=== PATIENT | female | born 1970 | race Caucasian/White ===

== ENCOUNTER 2016-11-29 07:07 | Observation (INO) | payer OTHER ==
[2016-11-29] MEDS ORDERED: NS 1,000 ML IV ONE (07:10)
[2016-11-29] MEDS ORDERED: MIDAZOLAM 2 MG/2 ML VIAL IVP ONE (07:10)
--- NOTE | 2016-11-29 07:30 | CPEKG ---
Heart Rate: 67 RR Interval: 896 P-R Interval: 144 QRSD Interval: 94 QT Interval: 412 QTC Interval: 435 P [place]: 76 QRS [place]: 61 T Wave [place]: 60 EKG Severity - NORMAL ECG - EKG Impression: SINUS RHYTHM EKG Impression: Agree with above Electronically Signed By: Sae Ulrich 29-Nov-2016 18:33:38
[2016-11-29] MEDS ORDERED: HEPARIN 10,000 UNIT/10 ML MDV ONE ×2 (07:33→10:46)
[2016-11-29] MEDS ORDERED: LIDOCAINE 1% 30 ML SDV ONE (07:33)
[2016-11-29] MEDS ORDERED: ISOPROTERENOL HCL 0.2 MG/ML 5ML AMP ONE (07:33)
[2016-11-29] MEDS ORDERED: BUPIVACAINE 0.5% 30 ML SDV ONE (07:34)
[2016-11-29 07:53] LABS: % IMMATURE GRANULYOCYTES 0.7 % (0.0-1.1); ABSOLUTE IMMATURE GRANULOCYTES 0.04 10^3/uL (0.00-0.10); ADD DIFF? NO; ADD MORPH? NO; ADD SCAN? NO; ATYPICAL LYMPHOCYTE FLAG 0 (0-99); FRAGMENT RBC FLAG 0 (0-99); HEMATOCRIT 41.2 % (38.0-47.0); HEMOGLOBIN 14.1 g/dL (12.6-16.3); LEFT SHIFT FLG 0 (0-99); LIPEMIA HEMOLYSIS FLAG 90 (0-99); MEAN CELL HEMOGLOBIN 32.3 pg (27.9-34.1); MEAN CELL HEMOGLOBIN CONCENTR. 34.2 g/dL (32.4-36.7); MEAN CELL VOLUME 94.3 fL (81.5-99.8); MEAN PLATELET VOLUME 9.3 fL (8.7-11.7); PLATELET CLUMPS FLAG 70 (0-99); PLATELET COUNT 192 10^3/uL (150-400); RED BLOOD CELL COUNT 4.37 10^6/uL (4.18-5.33); RED CELL DISTRIBUTION WIDTH 12.8 % (11.5-15.2)
[2016-11-29 07:59] LABS: INR 1.13 (0.83-1.16); PROTIME(PATIENT) 14.4 SEC (12.0-15.0)
[2016-11-29 08:00] LABS: APTT 29.2 SEC (23.0-38.0)
[2016-11-29 08:38] LABS: ANION GAP 11 mEq/L (8-16); CALCIUM 9.3 mg/dL (8.5-10.4); CARBON DIOXIDE 21 mEq/l (22-31); CHLORIDE 108 mEq/L (97-110); CREATININE 0.7 mg/dL (0.6-1.0); GLOMERULAR FILTRATION RATE > 60; GLUCOSE 93 mg/dL (70-100); POTASSIUM 4.9 mEq/L (3.5-5.2); SODIUM 140 mEq/L (134-144)
[2016-11-29] MEDS ORDERED: fentaNYL 250 MCG/5 ML INJ ONE (08:41)
[2016-11-29] MEDS ORDERED: PROPOFOL/EMULSION 500 MG/50 ML BOTTLE IV ONE ×2 (08:41)
[2016-11-29] MEDS ORDERED: MIDAZOLAM 2 MG/2 ML VIAL ONE ×2 (08:42→10:28)
[2016-11-29] MEDS ORDERED: ROCURONIUM 100 MG/10 ML VIAL ONE (08:42)
[2016-11-29] MEDS ORDERED: GLYCOPYRROLATE 0.2 MG/1 ML VIAL ONE (08:43)
[2016-11-29] MEDS ORDERED: DEXAMETHASONE 4 MG/ML VIAL ONE (09:11)
[2016-11-29] MEDS ORDERED: VASOPRESSIN 20 UNIT/ML VIAL ONE (09:11)
[2016-11-29] MEDS ORDERED: ONDANSETRON 4 MG/2 ML VIAL ONE (09:11)
[2016-11-29] MEDS ORDERED: ROCURONIUM 50 MG/5 ML VIAL ONE (10:44)
[2016-11-29] MEDS ORDERED: OXYCODONE/APAP 5/325 TAB PO PRN (12:08)
[2016-11-29] MEDS ORDERED: ONDANSETRON 4 MG/2 ML VIAL IVP PRN (12:08)
--- NOTE | 2016-11-29 12:08 | EPPROC ---
Electrophysiology Procedure Note: ELECTROPHYSIOLOGIC STUDY AND CATHETER MEDIATED ABLATION OF SLOW/FAST AV TRINY REENTRY TACHYCARDIA PROCEDURES PERFORMED: 78190-94 EP evaluation with RA/RV/LA pace/record, with arrhythmia induction 08252-97 EP evaluation with RA/RV pace record, insert/reposition catheter, with arrhythmia induction 87752 Intracardiac catheter ablation, SVT arrhythmogenic focus 16235 3D mapping Fluoroscopy INDICATION: SVT on LINQ PROCEDURE: Catheters & Anesthesia: The patient arrived in the Electrophysiology Laboratory in the fasting state. The right clavicular region, right groin, and left groin area were prepped and draped in the usual sterile manner. Anesthesiologist Dr. Mark Anthony Canchola administered general anesthesia. Appropriate non-invasive blood pressure, pulse oximetry and end-tidal CO2 monitoring was established. All catheters were placed percutaneously using the modified Seldinger technique , and advanced into position under fluoroscopic guidance. One #6 [place] hexapolar non-deflectable electrode catheter was inserted into the right atrial appendage via the left femoral vein (2mm spacing; except the proximal ring which was 25cm from the tip used for unipolar recordings). One #7 [place] deflectable octapolar electrode catheter was advanced to the His-bundle position via the left femoral vein (2mm spacing). One #7 [place] deflectable catheter with 10 pairs of electrodes was placed via the right femoral vein into the coronary sinus. CS access needed to be obtained with quadrapolar catheter first. Heparin was given to keep ACT > 200 s. Programmed stimulation was performed from the right atrium, right ventricle and coronary sinus (left atrium). Parahisian pacing demonstrated constant H-A interval with changing V-A intervals and stimulus-A intervals during capture and loss of capture of proximal RBB proving retrograde conduction over AV node. Dual AV triny pathway physiology was seen. 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 Sinus tachycardia 380 ms was seen with isoproterenol. Given that patient has had sustained SVT, we decided to ablate the slow AV triny pathway. Mapping of the right atrium and coronary sinus during AVNRT identified earliest atrial activation above the tendon of Kee[place] at a level slightly posterior to the level of the His bundle, consistent with retrograde conduction over the fast AV triny pathway. A #8 [place] deflectable quadrapolar electrode catheter (2mm-5mm-2mm spacing) with 4 mm tip electrode and sensor for the 3D mapping Carto system was advanced to the right atrium. 3 D mapping of the inter-atrial septum and coronary sinus was performed and location of the AV node was marked. A SL2 sheath was used. RF applications were delivered to the region between the tricuspid annulus and the coronary sinus ostium, at the level of the upper edge of the coronary sinus ostium. Radiofrequency applications were also delivered along the roof of the proximal coronary sinus. Junctional rhythm occurred during all of the RF applications. Antegrade slow pathway conduction was not seen post ablation. The catheters were removed. The long sheath was changed to a short 9 Fr sheath. The patient was transferred to the cardiovascular holding area in stable condition. Vascular access sheaths will be removed in the holding area. There were no apparent complications. Results: Spontaneous Intervals: Pre ablation SCL 910 ms AH 60 ms HV 40 ms Post ablation SCL 780 ms AH 60 ms HV 40 ms Antegrade AV triny function (decremental pacing) Pre ablation FPERP 460 ms SPERP 450 ms WBB CL 440 ms Post ablation FPERP 360 ms WBB CL 350 ms Retrograde AV triny function (decremental pacing) Pre ablation FPERP 290 ms WBB CL 280 ms Arrhythmias: Non-Sustained slow/fast AVNRT, 3 bts CONCLUSIONS 1.Prior documented sustained SVT 2.Successful ablation of the slow AV triny pathway with elimination of 1:1 antegrade conduction over the slow AV triny pathway and all retrograde conduction over the slow AV triny pathway. 3.No complications. Patient Problems: Problems Problem Status Onset Supraventricular tachycardia Acute
[2016-11-29] MEDS ORDERED: LORazepam 2 MG/ML INJ ONE (12:13)
[2016-11-29] MEDS ORDERED: LORazepam 2 MG/ML INJ IVP PRN (12:13)
--- NOTE | 2016-11-29 12:24 | CPEKG ---
Heart Rate: 77 RR Interval: 779 P-R Interval: 144 QRSD Interval: 82 QT Interval: 392 QTC Interval: 444 P [place]: 77 QRS [place]: 54 T Wave [place]: 56 EKG Severity - OTHERWISE NORMAL ECG - EKG Impression: SINUS RHYTHM EKG Impression: Possible left atrial abnormality EKG Impression: No significant change from November 29, 2016, 7:28 Electronically Signed By: Sae Ulrich 29-Nov-2016 18:32:44
[2016-11-29 14:07] LABS: ANION GAP 7 mEq/L (8-16); CALCIUM 8.6 mg/dL (8.5-10.4); CARBON DIOXIDE 22 mEq/l (22-31); CHLORIDE 110 mEq/L (97-110); CREATININE 0.7 mg/dL (0.6-1.0); GLOMERULAR FILTRATION RATE > 60; GLUCOSE 100 mg/dL (70-100); MAGNESIUM 1.8 mg/dL (1.6-2.3); POTASSIUM 4.6 mEq/L (3.5-5.2); SODIUM 139 mEq/L (134-144)
[2016-11-29] MEDS: GABAPENTIN 300 MG CAP PO SCH ×2 (15:14→21:05)
[2016-11-29] MEDS ORDERED: NON-FORMULARY NEW DRUG (Gabapentin [Gabapentin] 600 MG) PO SCH (16:00)
[2016-11-29] MEDS: ENOXAPARIN 60 MG/0.6 ML SYR SC SCH (21:05)
[2016-11-30 05:23] LABS: % IMMATURE GRANULYOCYTES 0.4 % (0.0-1.1); ABSOLUTE IMMATURE GRANULOCYTES 0.04 10^3/uL (0.00-0.10); ADD DIFF? NO; ADD MORPH? NO; ADD SCAN? NO; ATYPICAL LYMPHOCYTE FLAG 0 (0-99); FRAGMENT RBC FLAG 0 (0-99); HEMATOCRIT 38.7 % (38.0-47.0); HEMOGLOBIN 13.1 g/dL (12.6-16.3); LEFT SHIFT FLG 0 (0-99); LIPEMIA HEMOLYSIS FLAG 90 (0-99); MEAN CELL HEMOGLOBIN 31.6 pg (27.9-34.1); MEAN CELL HEMOGLOBIN CONCENTR. 33.9 g/dL (32.4-36.7); MEAN CELL VOLUME 93.3 fL (81.5-99.8); MEAN PLATELET VOLUME 9.6 fL (8.7-11.7); PLATELET CLUMPS FLAG 0 (0-99); PLATELET COUNT 208 10^3/uL (150-400); RED BLOOD CELL COUNT 4.15 10^6/uL (4.18-5.33); RED CELL DISTRIBUTION WIDTH 12.8 % (11.5-15.2)
[2016-11-30 05:29] LABS: INR 1.21 (0.83-1.16); PROTIME(PATIENT) 15.3 SEC (12.0-15.0)
[2016-11-30 05:30] LABS: ANION GAP 10 mEq/L (8-16); CARBON DIOXIDE 22 mEq/l (22-31); CHLORIDE 106 mEq/L (97-110); CREATININE 0.7 mg/dL (0.6-1.0); GLOMERULAR FILTRATION RATE > 60; GLUCOSE 75 mg/dL (70-100); SODIUM 138 mEq/L (134-144)
[2016-11-30 05:39] LABS: CREATINE KINASE-MB FRACTION 1.27 ng/mL (0-3.19); TROPONIN I 0.211 ng/mL (0-0.034)
[2016-11-30] MEDS: ENOXAPARIN 60 MG/0.6 ML SYR SC SCH (08:21)
[2016-11-30] MEDS: ASPIRIN EC 81 MG TAB PO SCH (08:22)
[2016-11-30] MEDS: GABAPENTIN 300 MG CAP PO SCH ×3 (08:22→20:28)
--- NOTE | 2016-11-30 08:35 | CPEKG ---
Heart Rate: 84 RR Interval: 714 P-R Interval: 132 QRSD Interval: 86 QT Interval: 376 QTC Interval: 445 P [place]: 77 QRS [place]: 58 T Wave [place]: 52 EKG Severity - NORMAL ECG - EKG Impression: SINUS RHYTHM EKG Impression: No significant change from November 29, 2016 Electronically Signed By: Sae Ulrich 30-Nov-2016 12:27:21
[2016-11-30] MEDS ORDERED: IOPAMIDOL (ISOVUE 370) 100 ML BTL IV ONE (10:39)
--- NOTE | 2016-11-30 10:41 | ECHO ---
[id number] + + [address] : : [place] [address] : : [phone] + Adult Echocardiographic Report + ---+ :Name: LETICIA MCMULLEN LStudy Date: 11/30/2016 09:49 AM : : Hospital Admission Number: [id number] Location: 222: :: 1970 Gender: Female Height: 65 in : :Age: 46 yrs Race: WH Weight: 127 lb : :Reason For Study: Eval LV Fx : : BSA: 1.6 meters2 : :History: Post Ablation : + ---+ MMode/2D Measurements \T\ Calculations IVSd: 0.77 cm LVIDd: 4.3 cm FS: 35.5 % Ao root diam: 2.5 cm LVPWd: 0.94 cm LVIDs: 2.8 cm EDV(Teich): 83.0 ml ACS: 1.7 cm ESV(Teich): 28.8 ml LA dimension: 2.3 cm EF(Teich): 65.3 % Normal Measurement Values: + + :LVIDd (3.5-5.7cm) IVSd (0.6-1.1cm) LVPWd (0.6-1.1cm) Aortic Root (2.0-3.7cm)Left Atrium (1.5-4.0cm): :LV Vol(d) (76-115ml) LV Vol(s) (29-48ml) Ejec Fraction (50-65%)PV Elvin (0.6- 1.2m/s) TV Elvin (0.4-1.0m/s) : :MV E Elvin (0.8-1.0m/s)MV A Elvin (0.3-1.0m/s)LVOT Elvin (0.7-1.2m/s) Asc Ao Elvin ( 0.9-1.8m/s) : + + Doppler Measurements \T\ Calculations MV E max elvin: Ao V2 max: LV V1 max: PA V2 max: 83.4 cm/sec 139.8 cm/sec 81.9 cm/sec 81.4 cm/sec MV A max elvin: Ao max P.8 mmHg LV V1 max PG: PA max P.8 cm/sec 2.7 mmHg 2.7 mmHg MV E/A: 1.5 Left Ventricle The left ventricle is normal in size. There is normal left ventricular wall thickness. The left ventricular ejection fraction is normal. Ejection Fraction = 66%. The left ventricular wall motion is normal. Atria The left atrial size is normal. Right atrial size is normal. Mitral Valve The mitral valve is normal in structure and function. There is no evidence of mitral valve prolapse. There is no mitral valve stenosis. There is trace mitral regurgitation. Tricuspid Valve Normal tricuspid valve. No tricuspid regurgitation. Aortic Valve The aortic valve is normal in structure and function. The aortic valve is trileaflet. There is no aortic stenosis. There is no aortic insufficiency. Pulmonic Valve The pulmonic valve is normal in structure and function. There is no pulmonic valvular regurgitation. Great Vessels The aortic root is normal size. Pericardium/Pleural There is no pericardial effusion. Conclusion A complete two-dimensional transthoracic echocardiogram was performed (2D, M-mode, Doppler and color flow Doppler). The left ventricular ejection fraction is normal. Ejection Fraction = 66%. The left ventricular wall motion is normal. The left atrial size is normal. The mitral valve is normal in structure and function. There is trace mitral regurgitation. The aortic valve is normal in structure and function. The aortic valve is trileaflet. There is no pericardial effusion. Final Reading Physician: Miley Santos signed on 11/30/2016 10:40 AM Ordering Physician: Hernan Davison Performed By: Lisandro Harley, CHARLIECS
[2016-11-30] MEDS: ACETAMINOPHEN 325 MG TAB PO PRN ×2 (10:47→20:35)
[2016-11-30] MEDS ORDERED: IBUPROFEN 600 MG TAB PO ONE (11:40)
[2016-11-30] MEDS ORDERED: KETOROLAC 15 MG/1 ML SDV IVP ONE (15:46)
--- NOTE | 2016-11-30 16:22 | PDCARPN ---
Cardiology Progress Note Chief Complaint: Patient reports chest pressure with deep inspiration. Also reporting continues left hip pain. Assessment/Plan: Assessment: 46-year-old female patient with significant history of factor 5 Leiden mutation and SVT. Noted October 15 off continues monitoring of an episode SVT with heart rates up to [address] Evans for EP study. Performed yesterday, which she was successfully able to eliminate a slow AV maury pathway with retrograde conduction (AVNRT). No apparent complications. This morning, patient reporting chest pressure with deep inspirations, reporting has been going on for greater than 1 week. And left hip pain. Groin site without signs of bleeding, ecchymosis, hematoma, or signs of infection. Electrocardiogram done this a.m. shows sinus rhythm with no significant ST or T-wave abnormalities suggesting of ischemia. Unchanged from preprocedural EKG. Patient noted to have normal exercise treadmill test done at [facility] 03/11/2016. Echocardiogram done this morning showed normal LV function with EF 66 %, no wall motion abnormalities, trace MR, no pericardial effusion. Patient with mildly elevated troponin this morning at 0.211, which is expected after ablation. No CK-MB elevation. Patient sent for CTA of chest, negative for PE, trace right pleural effusion. Noted 4 mm nodule, which radiology reports no further follow-up is recommended due the patient being a nonsmoker. Patient given ibuprofen, reporting some relief in symptoms. Toradol this afternoon. Continuous cardiac monitoring shows sinus rhythm, no SVT, VT, or malignant arrhythmias could. No significant pauses. Plan: 1. SVT: Status post ablation, no arrhythmias noted on continuous cardiac monitoring. 2. CP: Improved with ibuprofen, patient given torsemide this afternoon. Electrocardiogram showing normal LV systolic function, normal EF, no wall motion abnormalities. No pericardial effusion. No acute ST or T-wave abnormalities. Mild troponin bump as expected post ablation, no CK elevation. Negative CTA for PE. Will plan on monitoring overnight, repeat EKG in a.m.. Repeat troponin level to assure on downward decline. Will also set order C reactive protein and sed rate in am. 3. Factor 5 Leiden deficiency: Patient had Lovenox postoperatively, transition to Eliquis, per Dr. Evans once her on a for a minimum of 1 month post ablation 4. 4 mm nodule on CTA chest: Patient with previous history of smoking, quit 25 years ago, will refer to pulmonology as an outpatient for follow-up. 5. Left hip pain: No signs of bleeding (H&H stable), improvement with ibuprofen. Potential muscular skeletal due to duration laying on EP table. Due to the patient needing to be further monitor, will plan for her for least 1 more midnight stay. 11/30/16 16:19 Subjective: Patient denies of any shortness of breath, orthopnea, PND, edema, palpitations, near-syncope, or syncopal events. Reviewed/Discussed With: family (), other (Dr Evans) Objective: Vital Signs (8 Hrs) Temp Pulse Resp BP Pulse Ox 11/30/16 11:52 36.6 C 66 17 101/69 99 Intake/Output (24 Hrs) 11/29/16 11/30/16 12/01/16 05:59 05:59 05:59 Intake Total 3100 Output Total 850 Balance 2250 Intake: Oral (ml) 1250 IV Intake (ml) 1850 Output: Urine (ml) 850 Toilet 850 Other: Weight 58 kg Intake Quantity Yes Sufficient Number of Voids Toilet 1 Result Diagrams: 11/30/16 03:37 11/30/16 03:37 Cardiac Labs: Cardiac Lab Results (72 Hrs) 11/30/16 03:37 CK-MB (CK-2) Fraction 1.27 Troponin I 0.211 H - Physical Exam Constitutional: WDWN, healthy appearing, no apparent distress Ears, Nose, Mouth, Throat: moist mucous membranes Cardiovascular: regular rate and rhythm, no murmurs, no rubs, no gallops, pulses symmetric bilat, No systolic murmur, No jugular vein distention, No carotid bruit Peripheral Pulses: 1+: dorsalis-pedis (R), dorsalis-pedis (L), 2+: carotid (R), carotid (L) Respiratory: clear to auscultate bilat, no crackles, no wheezes, No reduced air movement Gastrointestinal: normoactive bowel sounds Skin: no rashes, warm, no edema, other (Bilateral groin sites, catheter insertion sites, with no redness, swelling, or drainage. No ecchymosis, hematoma, or bleeding. No auscultated bruit over either site.) Neurologic: AAOx3 Psychiatric: cooperative, interactive, following commands ICD10 Worksheet Patient Problems: Problems Problem Status Onset Supraventricular tachycardia Acute
[2016-11-30 19:50] VITALS: RESP 16
[2016-11-30] MEDS ORDERED: CALCIUM CARBONATE 500 MG CHEWABLE TAB PO PRN (20:07)
[2016-11-30] MEDS ORDERED: PANTOPRAZOLE SODIUM 40 MG TAB PO ONE (20:07)
[2016-11-30] MEDS: APIXABAN 5 MG TAB PO SCH (20:28)
[2016-11-30] MEDS ORDERED: LORazepam 0.5 MG TAB PO ONE (20:30)
[2016-11-30] MEDS ORDERED: LORazepam 0.5 MG TAB PO PRN (23:00)
[2016-12-01 04:35] LABS: HEMATOCRIT 36.8 % (38.0-47.0); HEMOGLOBIN 12.5 g/dL (12.6-16.3); MEAN CELL HEMOGLOBIN 32.2 pg (27.9-34.1); MEAN CELL VOLUME 94.8 fL (81.5-99.8); RED BLOOD CELL COUNT 3.88 10^6/uL (4.18-5.33)
[2016-12-01 04:51] LABS: ANION GAP 8 mEq/L (8-16); C-REACTIVE PROTEIN < 5.0 mg/L (<10.0); CALCIUM 8.5 mg/dL (8.5-10.4); CARBON DIOXIDE 21 mEq/l (22-31); CHLORIDE 109 mEq/L (97-110); CREATININE 0.7 mg/dL (0.6-1.0); GLOMERULAR FILTRATION RATE > 60; GLUCOSE 93 mg/dL (70-100); POTASSIUM 4.2 mEq/L (3.5-5.2); SODIUM 138 mEq/L (134-144)
[2016-12-01 07:25] VITALS: BP 104/62; PULSE 78; TEMP 97.4; O2SAT 98
--- NOTE | 2016-12-01 08:53 | CPEKG ---
Heart Rate: 80 RR Interval: 750 P-R Interval: 132 QRSD Interval: 80 QT Interval: 380 QTC Interval: 439 P [place]: 73 QRS [place]: 56 T Wave [place]: 54 EKG Severity - NORMAL ECG - EKG Impression: SINUS RHYTHM EKG Impression: No significant change from November 30, 2016 Electronically Signed By: Sae Ulrich 01-Dec-2016 15:28:32
[2016-12-01] MEDS: ASPIRIN EC 81 MG TAB PO SCH (09:31)
[2016-12-01] MEDS: APIXABAN 5 MG TAB PO SCH (09:31)
[2016-12-01] MEDS: GABAPENTIN 300 MG CAP PO SCH (09:31)
--- NOTE | 2016-12-01 14:55 | GDS ---
[f rep st] DISCHARGE SUMMARY DISCHARGE DIAGNOSES: 1. Paroxysmal supraventricular tachycardia confirmed by LINQ monitor placement. 2. History of factor V Leiden mutation. 3. 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 4. 4 mm right lower lobe nodule. 5. 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 PROCEDURES: 11/29/2016, EP study with successful ablation of the AV maury pathway with elimination of one-to-one antegrade conduction over the slow AV maury pathway and all retrograde conduction over the slow AV maury pathway. HISTORY: Please see dictated H and P from Dr. Evans for complete details. In brief, the patient is a 46-year-old female with a history of SVT, vertebral artery dissection with subsequent TIAs, factor V Leiden mutation, who was referred by Dr. Williams Eller for SVT found on LINQ monitoring. She proceed ed to EP study with ablation with Dr. Evans. Yesterday was postprocedure day #1. Patient was describ ing about a week's history of shortness of breath and chest pain on deep inspiration. Echo showed n o pericardial effusion. EKG was without evidence of any ST changes. CTA was obtained and was negat drew for PE. She does have a small 4 mm nodule, and she was advised to follow up with pulmonology in regard to this. HOSPITAL COURSE BY PROBLEM: 1. SVT, status post ablation. Due to her factor V Leiden mutation, she has been started on Eliquis , which will need to be continued for a month total. She has been given a prescription as well as a free sample card. 2. Chest pain. She reports it was improved with Ativan. She is requesting a short prescription of this and this was given to her. 3. Factor V Leiden mutation. As above, she is being started on Eliquis postprocedure. After 1 mon , she is to transition back to her oral aspirin. 4. 4 mm lung nodule. She may see pulmonology as an outpatient for this. 5. Left hip pain, likely musculoskeletal. She was advised on analgesia for this. RESULTS PENDING: None. PHYSICAL EXAM: VITAL SIGNS: On day of discharge, blood pressure 104/62, heart rate 76, respiration s 16, O2 saturation 98% on room air, temp of 97.4. GENERAL: She is a very pleasant female in no ap parent distress. HEENT: Eyes are without scleral icterus. HEART: Regular rate and rhythm. LUNGS : Clear. ABDOMEN: Groin site without bruit. EXTREMITIES: She has 2+ PT and DP pulses bilaterall y. LABORATORY DATA: CBC on day of discharge, with a WBC of 5.87, hemoglobin 12.5, hematocrit 36.8, gwendolyn telet count of 204. BMP: Sodium 138, potassium 4.2, chloride 109, CO2 21, BUN 10, creatinine 0.7, glucose 93. DIET: Per previous. ACTIVITY: Groin precautions were reviewed. FOLLOWUP: 1. Follow up with Dr. Evans as scheduled. 2. Consult pulmonology as an outpatient. 3. Follow up with PCP as scheduled. Please note that greater than 30 minutes was spent on discharge and coordination of care. /[id number]/MODL
== END 2016-12-01 11:48 | disposition home or self-care (01) ==
LOC: FCATH 07:07 → F2W 11:11
PROVIDERS: ADMIT Internal Medicine Cardiovascular Disease; ATTEND Internal Medicine Cardiovascular Disease
DX: I47.1 Supraventricular tachycardia (principal); R07.9 Chest pain, unspecified; M25.552 Pain in left hip; I77.1 Stricture of artery; D68.2 Hereditary deficiency of other clotting factors; R91.1 Solitary pulmonary nodule; Z86.73 Personal history of transient ischemic attack (TIA), and cerebral infarction without residual deficits
CPT/HCPCS: 71275; 93005; 93306; 93613; 93621; 93623; 93653; C1730; C1731; C1732; G0378; C1893; J1100; J1644; J1650; J1885; J2060; J2250; J2405; J2704; J3010; Q9967

== ENCOUNTER → 2016-12-06 | Outpatient (CLI) | payer OTHER | LOC: BMCIMAGING 15:58 | PROVIDERS: ATTEND Podiatrist Foot & Ankle Surgery | DX: M79.672 Pain in left foot (principal) ==

== ENCOUNTER → 2016-12-12 | Outpatient (CLI) | payer OTHER | LOC: BMCIMAGING 09:47 | PROVIDERS: ATTEND Internal Medicine Cardiovascular Disease | DX: I47.1 Supraventricular tachycardia (principal); I31.3 Pericardial effusion (noninflammatory) ==

== ENCOUNTER → 2016-12-13 | Outpatient (CLI) | payer OTHER ==
[~2016-12-13] MED LIST: IOPAMIDOL (ISOVUE 370) 100 ML BTL IV ONE
== END ==
LOC: CIMAGING 08:27
PROVIDERS: ATTEND Psychiatry & Neurology Neurology
DX: I77.74 Dissection of vertebral artery (principal)
CPT/HCPCS: 70498-PO; Q9967

== ENCOUNTER 2017-08-09 08:19 | Day surgery (SDC) | payer OTHER ==
[2017-08-09] MEDS ORDERED: LIDOCAINE 1% 300 MG/30 ML SDV ONE (09:48)
[2017-08-09] MEDS ORDERED: fentaNYL 100 MCG/2 ML INJ ONE (09:48)
[2017-08-09] MEDS ORDERED: MIDAZOLAM 2 MG/2 ML VIAL ONE ×2 (09:48→10:20)
--- NOTE | 2017-08-09 09:51 | PDPROPOC ---
Sedation Plan of Care Sedation Plan of Care: vital signs stable, mental status noted, patient educated of risks, benefits, alternatives, patient can tolerate sedation ASA Classification: ASA 2 Planned drugs: fentanyl, midazolam Mallampati Score: Class 1 Mallampati Reference Image: Patient passed 3-3-2 rule?: Yes
--- NOTE | 2017-08-09 09:53 | PDGENHP ---
History & Physical Chief Complaint: Linq removal History of Present Illness: 47 year old female with sVT sp ablatiion requesting LINQ removal. Relevant Physical Exam: Awake, Alert appriopriate
--- NOTE | 2017-08-09 11:24 | GPN ---
[f rep st] PROCEDURE NOTE DATE OF PROCEDURE: 08/09/2017 PROCEDURE PERFORMED: [employer] implantable loop recorder removal. INDICATION: Initial indication for loop recorder was palpitations and supraventricular tachycardia. The patient was found to have a supraventricular tachycardia with an implantable loop recorder and un derwent successful ablation with Dr. Wilfrido Evans. She is requesting implantable loop recorder removal in anticipation of breast augmentation surgery scheduled for sometime next year. DESCRIPTION OF PROCEDURE: After informed consent was obtained, the patient was brought to the [facility] catheterization lab where she was prepped and draped in a sterile fashion. She was given sedation with Versed and fentanyl. Once appropriate level of sedation was achieved, 1% lidocaine was used to anesthetize the surgical site locally. Incision was made with a scalpel blade, and device was remove d successfully with forceps. Hemostasis was achieved. Two florina were applied. Sterile dressing a nd Tegaderm were applied. Patient tolerated the procedure well. There were no postoperative complic ations. CONCLUSION: Successful implantable loop recorder removal. /[id number]/MODL
== END 2017-08-09 12:12 | disposition home or self-care (01) ==
LOC: FCATH 08:19
PROVIDERS: ATTEND Internal Medicine Cardiovascular Disease
PROC: 0JPT02Z Removal of Monitoring Device from Trunk Subcutaneous Tissue and Fascia, Open Approach (ICD-10-PCS; principal; 2017-08-09)
DX: Z45.09 Encounter for adjustment and management of other cardiac device (principal)
CPT/HCPCS: J2250; J3010

== ENCOUNTER 2018-01-02 10:26 | Emergency (ER) | payer OTHER ==
--- NOTE | 2018-01-02 11:00 | EDPHY ---
H & P Stated Complaint: dizziness started 1700 yesterday, R sided h/a-feels similar to vert art dis Source: Patient, Old records Exam Limitations: No limitations - Personal History LMP (Females 10-55): Hysterectomy - Medical/Surgical History Hx Asthma: No Hx Chronic Respiratory Disease: No Hx Diabetes: No Hx Cardiac Disease: No Hx Renal Disease: No Hx Cirrhosis: No Hx Alcoholism: No Hx HIV/AIDS: No Hx Splenectomy or Spleen Trauma: No Other PMH: migraines, "abdon" stroke 2013, SVT, hysterxctomy 2011. verterbral artery disection 06/16 - Social History Smoking Status: Former smoker Time Seen by Provider: 01/02/18 10:59 HPI/ROS: HPI: This is a 47-year-old female who presents with Chief Complaint: dizziness started 1700 yesterday, R sided h/a-feels similar to vert art dis Location: Right-sided head Quality: Achiness and dizziness Duration: Acute onset around 5:00 p.m. 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 Patient reports that she did and upper body workout several days prior and had some right triceps tenderness and decreased range of motion. She reports status post her vertebral artery dissection she has always had some dull aching discomfort in the right trapezius muscle. She went to [place] within the last 1-2 weeks. She denies any fever/nasal congestion. She does have a history of migraine headaches. She reports that her boyfriend came to pick her up from work and the headache improved to putting cold packs on the back of her neck. She called her neurologist this morning Dr. Clarke, who advised her to go to the emergency room immediately to rule out vertebral artery dissection. Patient reports that she is hoping this is just muscular strain and migraine headache type symptoms. Patient rates her headache and discomfort as 2/10 presently and politely declines any medication. Modifying Factors: Aspirin Comment: ROS: see HPI Constitutional: No fever, no chills, no weight loss Eyes: No blurred vision Respiratory: No shortness of breath, no cough Cardiovascular: No chest pain, no palpitations Gastrointestinal: No nausea, no vomiting, no diarrhea, no hematemesis, no blood in stool Genitourinary: No dysuria, no blood in urine Extremities: No myalgias, no edema Neurologic: No weakness, no numbness Skin: No rashes, no petechiae Hematologic: No bruising, no bleeding MEDICAL/SURGICAL/SOCIAL HISTORY: Medical.Surgery history: migraines, "abdon" stroke 2013, SVT, hysterectomy 2012 vertebral artery dissection 06/16 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 Family history noncontributory. CONSTITUTIONAL: Extremely polite and cooperative middle-aged white female, awake and alert, no obvious distress HEENT: Atraumatic and normocephalic, PERRL, EOMI. Nares patent; no rhinorrhea; no nasal mucosal edema. Tympanic membranes clear. Oropharynx clear, no exudate and moist pink mucosa. Airway patent. No lymphadenopathy. No meningismus. No carotid bruits. No temporal reproducible tenderness. Cardiovascular: Normal S1/S2, regular rate, regular rhythm, without murmur rub or gallop. PULMONARY/CHEST: Symmetrical and nontender. Clear to auscultation bilaterally. Good air movement. No accessory muscle usage. ABDOMEN: Soft, nondistended, nontender, no rebound, no guarding, no peritoneal signs, no masses or organomegaly. No CVAT. EXTREMITIES: 2/2 pulses, strength 5/5, no deformities, no clubbing, no cyanosis or edema. NEUROLOGICAL: no focal neuro deficits. GCS 15. Cranial nerves 2-12 grossly intact. SKIN: Warm and dry, no erythema. no rash. Good capillary refill. (Thuy Tomas) Constitutional: Initial Vital Signs Temperature (C) 36.4 C 01/02/18 10:34 Heart Rate 79 01/02/18 10:34 Respiratory Rate 16 01/02/18 10:34 Blood Pressure 105/69 01/02/18 10:34 O2 Sat (%) 97 01/02/18 10:34 O2 Delivery Mode Room Air Allergies/Adverse Reactions: topiramate [From Topamax] Allergy (Verified 11/29/16 08:54) Hives Home Medications: Medication Instructions Recorded Gabapentin 01/02/18 Meclizine HCl [Meclizine HCl 25 mg 25 mg PO Q6 #12 tab 01/02/18 (RX,OTC)] Medical Decision Making - Diagnostics EKG Interpretation: 12 lead EKG is interpreted in Trace master View by emergency department physician. (Cheri Arroyo) ED Course/Re-evaluation: EKG, CT head, CTA head and neck, labs ordered Vital signs stable upon arrival. No systemic signs. EKG shows sinus rhythm with a rate of 84 beats per minute 1150: Reviewed labs. No signs of leukocytosis/anemia/VICK/electrolyte imbalance /coagulopathy. Chart review shows that CT angio neck on 12/13/2016: No change in focal dissection involving 5 to set van mm length of the right vertebral artery at the level C6. 1225: Called by radiologist who advised that head CT scan, CTA head and neck shows stable 5 mm vertebral artery dissection. No other acute processes. 1226: Reassessed patient who reports that room spinning increases with any movement. Given IV Decadron and p.o. Meclizine 25 mg. 1305: Reassessed patient who reports 50% improvement in symptoms. Able to sit up and stand without excessive dizziness. 1310: Spoke with neurologist, Dr. Clarke, regarding stable CT and CTA finding. She is requesting MRI of her brain to evaluate for cerebellar embolism prior to discharge. 1530: Called by radiologist who advised that MRI brain is normal in shows no acute intracranial processes. Reassessed patient who reports that she feels back to baseline. Denies any headache/dizziness. She reports that she just feels tired. She will follow up with both her neurologist and primary care provider. Requested a prescription for Antivert. No signs of CVA/temporal arteritis/cerebellar embolism/meningitis This patient was seen under the supervision of my secondary supervising physician. I evaluated care for this patient independently. Discussed this patient with Dr. Arroyo who did not see the patient. (Thuy Tomas) The patient was evaluated and managed by the physician anesthesiology physician assistant. I have reviewed this chart and I agree with the findings and plan of care as documented , as indicated by my signature. I am the secondary supervising physician. ( Cheri Arroyo) Differential Diagnosis: Dizziness including but not limited to peripheral and central causes of vertigo , orthostatic causes including dehydration, and blood loss. (Thuy Tomas) - Data Points Laboratory Results: Laboratory Results 01/02/18 11:15 01/02/18 11:15 Medications Given: Discontinued Medications Dexamethasone (Decadron Injection) 8 mg IVP EDNOW ONE Stop: 01/02/18 12:24 Last Admin: 01/02/18 12:33 Dose: 8 mg Meclizine HCl (Meclizine Hcl) 25 mg PO EDNOW ONE Stop: 01/02/18 12:26 Last Admin: 01/02/18 12:30 Dose: 25 mg Departure - Departure Disposition: Home, Routine, Self-Care Clinical Impression: Vertiginous migraine Condition: Good Instructions: Migraine Headache (ED), Vertigo (ED) Additional Instructions: Consume a minimum of 8-10 glasses of water or electrolyte fluid replacement drinks that include Gatorade, Powerade, Pedialyte. Follow-up with both your primary care provider and neurologist within the next 3 -5 days. Take meclizine 1 tab every 6 hours as needed for vertigo. Return to the ER immediately if you have progressive headaches, neurologic deficits, gait abnormality, visual disturbance, slurred speech, or any other symptom that concerns you. Referrals: Celia Montanez MD [Primary Care Provider] - As per Instructions Bryanna Clarke DO [Non Staff and Non MD] - As per Instructions Prescriptions: Meclizine HCl [Meclizine HCl 25 mg (RX,OTC)] 25 mg PO Q6 #12 tab
--- NOTE | 2018-01-02 11:09 | CPEKG ---
Heart Rate: 82 RR Interval: 732 P-R Interval: 140 QRSD Interval: 78 QT Interval: 384 QTC Interval: 449 P [place]: 73 QRS [place]: 45 T Wave [place]: 40 EKG Severity - NORMAL ECG - EKG Impression: SINUS RHYTHM Electronically Signed By: Cheri Arroyo 02-Jan-2018 15:25:14
[2018-01-02 11:27] LABS: PLATELET COUNT 196 10^3/uL (150-400)
[2018-01-02 11:38] LABS: INR 1.13 (0.83-1.16); PROTIME(PATIENT) 14.7 SEC (12.0-15.0)
[2018-01-02] MEDS ORDERED: IOPAMIDOL (ISOVUE 370) 100 ML BTL IV ONE (11:39)
[2018-01-02] MEDS ORDERED: DEXAMETHASONE 4 MG/ML VIAL IVP ONE (12:23)
[2018-01-02] MEDS ORDERED: MECLIZINE HCL 25 MG TAB PO ONE (12:25)
[2018-01-02 15:45] VITALS: BP 114/74
== END 2018-01-02 15:45 | disposition home or self-care (01) ==
DX: G43.809 Other migraine, not intractable, without status migrainosus (principal); Z87.891 Personal history of nicotine dependence
CPT/HCPCS: 96374; J1100; Q9967